=== PATIENT | male | born 1930 | race Caucasian/White ===

== ENCOUNTER → 2017-02-21 | Outpatient (CLI) | payer MEDICARE, BC ==
[~2017-02-21] MED LIST: ASPIRIN PO; AZOPT5 ML OP; CARDURA PO; CELEBREX PO; CERTAGEN PO; DETROL LA PO; LIPITOR PO; LORTAB 5/500 TA1 TA1 PO; LUMIGAN EYE DROPS
--- NOTE | ~2017-02-21 | NM8 ---
[facility] A Service of [facility] & [facility] RADIOLOGY TEXT RESULTS PATIENT: ELBERT YAÑEZ LOCATION: [facility] : 30 UNIT #: [id number] AGE: [address]: Sebastián Lakhani MD SEX: M ORDER DR: [id number] [facility] [address] [place], [place] [address] [id number] O MR#: [id number] Acc #: [id number] NAME: ELBERT YAÑEZ. : 1930 SEX: M STUDY DATE/TIME: 02/21/2017 12:27 UNIT: [facility] ROOM: STUDY DESCRIPTION: VA Bone or Joint Whole Body Attending Physician: Sebastián Lakhani M.D. Referring Physician: Sebastián Lakhani M.D. Ordering Physician: Sebastián Lakhani M.D. Primary Care Physician: Rodger Hawkins M.D. MEDICAL IMAGING REPORT This report is preliminary unless electronic signature is present EXAM Bone scan 02/21/2017. INDICATIONS Prostate carcinoma. Observation for metastatic disease. Restaging. COMPARISON Bone scan dated 01/03/2013. CT abdomen and pelvis dated 02/21/2017 and 01/03/2013. 30.3 mCi of Tc99m MDP injected per protocol. 2-hour scintigraphic images were obtained in the anterior and posterior projection. Lateral cervical spine and oblique views of the chest were obtained. FINDINGS There is normal physiologic distribution of radiotracer in the kidneys and bladder. Degenerative uptake is identified in the cervical spine, unchanged. There is also some mild uptake in the mid to lower thoracic spine. This is similar to the prior bone scan. There is degenerative uptake in the right mid foot and both first metatarsophalangeal joint. There is focal uptake associated with the left sternoclavicular joint and in both acromioclavicular joints. This is unchanged. IMPRESSION 1. No evidence of metastatic disease. 2. Multiple areas of uptake in the axial skeleton and appendicular skeleton most consistent with degenerative changes. These are all similar to the prior bone scan from 2012. Dictated by... Monty Desai M.D. [facility]. [facility] A Service of [facility] / [facility] RADIOLOGY TEXT RESULTS PATIENT: ELBERT YAÑEZ [id number] 30 UNIT #: [id number] AGE: [address]: Sebastián Lakhani MD SEX: M ORDER DR: THIS IS AN ELECTRONICALLY VERIFIED REPORT Monty Desai M.D. at 02/22/2017 10:51 AM CAMILLE/darren TD: 02/22/2017 07:15 JOB #: [id number] MEDICAL IMAGING REPORT Page 1 of 1 COPY
--- NOTE | ~2017-02-21 | CT2 ---
[facility] A Service of [facility] / [facility] RADIOLOGY TEXT RESULTS PATIENT: ELBERT YAÑEZ LOCATION: [facility] : 30 UNIT #: [id number] AGE: [address]: Sebastián Lakhani MD SEX: M ORDER DR: [id number] [facility] [address] [place], [place] [address] [id number] O MR#: [id number] Acc #: [id number] NAME: ELBERT YAÑEZ. : 1930 SEX: M STUDY DATE/TIME: 02/21/2017 9:14 UNIT: [facility] ROOM: STUDY DESCRIPTION: CT Abd and Pelv W Cont Attending Physician: Sebastián Lakhani M.D. Referring Physician: Sebastián Lakhani M.D. Ordering Physician: Sebastián Lakhani M.D. Primary Care Physician: Rodger Hawkins M.D. MEDICAL IMAGING REPORT This report is preliminary unless electronic signature is present EXAM CT abdomen and pelvis. INDICATIONS Prostate cancer. Elevated PSA. Observation for metastatic disease. TECHNIQUE CT abdomen and pelvis with p.o. and IV contrast (100 mL Isovue-370 IV contrast). Coronal and sagittal reconstructions were obtained. This CT exam was performed with one or more of the following radiation dose reduction techniques: automatic exposure control, adjustment of mA and/or kV according to patient size, and iterative reconstruction. COMPARISON Bone scan obtained the same day. CT abdomen and pelvis dated 01/03/2013. FINDINGS There is a small cyst in the lateral segment, left hepatic lobe. Gallbladder is not distended. No intrahepatic or extrahepatic biliary dilatation. There is generalized atrophy of the pancreas. There is a small nodule adjacent to the pancreatic tail measuring 0.8 cm. This may simply represent normal pancreatic tissue and it is unchanged from the 2013 exam consistent with a benign etiology. There is mild renal atrophy. No hydronephrosis. No enlarged retroperitoneal or mesenteric lymph nodes. The bowel is not dilated. 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 There is likely renal arterial stenosis. Pelvis: There is some colonic diverticula, no diverticulitis. No enlarged pelvic or inguinal lymph nodes. [facility]. [facility] A Service of [facility] / [facility] RADIOLOGY TEXT RESULTS PATIENT: ELBERT YAÑEZ LOCATION: [facility] : 30 UNIT #: [id number] AGE: [address]: Sebastián Lakhani MD SEX: M ORDER DR: No acute osseous abnormalities. IMPRESSION 1. 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 No suspicious osseous abnormalities. 2. No evidence of metastatic disease in the abdomen or pelvis. Dictated by... Monty Desai M.D. THIS IS AN ELECTRONICALLY VERIFIED REPORT Monty Desai M.D. at 02/22/2017 10:51 AM CAMILLE/clem TD: 02/22/2017 06:57 JOB #: [id number] MEDICAL IMAGING REPORT Page 1 of 1 COPY
[2017-02-21 10:15] LABS: POC - GFR >60.0 mL/min (>60)
== END | disposition home or self-care (01) ==
LOC: CNUC 07:59
PROVIDERS: Urology
DX: C61 Malignant neoplasm of prostate (principal); R97.20 Elevated prostate specific antigen [PSA]; M47.896 Other spondylosis, lumbar region
CPT/HCPCS: 74177; 78306; 82565; A9503; Q9967